=== PATIENT | female | born 1940 | race African-American/Black ===

== ENCOUNTER 2018-07-19 21:12 | Emergency (ER) | payer OTHER ==
[~2018-07-19] VITALS: Ht 160 cm; Wt 80.0 kg
[2018-07-19] MEDS ORDERED: KETOROLAC 15MG/ML VIAL IV ONE (23:30)
[2018-07-20] MEDS ORDERED: KETOROLAC 30MG/ML VIAL IV ONE (01:45)
[2018-07-20 03:02] VITALS: BP 172/78
[2018-07-20] MEDS ORDERED: HYDROCODONE/ACETAMINOPHEN 5/325MG TABLET PO ONE (03:15)
== END 2018-07-20 03:37 | disposition short-term general hospital (02) ==
LOC: ER 21:12
DX: S82.841A Displaced bimalleolar fracture of right lower leg, initial encounter for closed fracture (principal); S82.55XA Nondisplaced fracture of medial malleolus of left tibia, initial encounter for closed fracture; I50.9 Heart failure, unspecified; I13.2 Hypertensive heart and chronic kidney disease with heart failure and with stage 5 chronic kidney disease, or end stage renal disease; E11.22 Type 2 diabetes mellitus with diabetic chronic kidney disease; N18.6 End stage renal disease; Z99.2 Dependence on renal dialysis; Z98.890 Other specified postprocedural states; Z96.649 Presence of unspecified artificial hip joint; Z95.1 Presence of aortocoronary bypass graft; Z88.8 Allergy status to other drugs, medicaments and biological substances; Z88.5 Allergy status to narcotic agent; W07.XXXA Fall from chair, initial encounter; Y93.89 Activity, other specified; Y92.89 Other specified places as the place of occurrence of the external cause; Y99.8 Other external cause status
CPT/HCPCS: 29505; 29515; 73560; 73590; 73610; 73620; 96374; 96376; 99285; J1885